=== PATIENT | male | born 1985 | race African-American/Black ===

== ENCOUNTER 2019-07-07 19:45 | Observation (INO) ==
[2019-07-07] MEDS ORDERED: CLINDAMYCIN INJ 600 MG in PREMIX 1 EACH IV STA (20:57)
[2019-07-07] MEDS ORDERED: LIDOCAINE 1% 20 ML VIAL INFILTRAT STA (20:59)
[2019-07-07 21:32] LABS: Basophils % 0.2 % (0.0-0.8); Eosinophils # 0.1 10*3/uL (0.0-0.87); Eosinophils % 0.6 % (0.00-10.9); Hematocrit 42.2 VOL% (42.0-52.0); Hemoglobin 14.3 GM/DL (14.0-18.0); Immature Granulocytes % 0.4 %; Immature Granulocytes Absolute 0.06 #; Lymphocytes # 1.2 10*3/uL (1.4-4.0); Mean Corpuscular HGB Conc 33.9 GM/DL (32-36); Mean Corpuscular Volume 96.1 FL (87-102); Mean Platelet Volume 10.8 FL (9.6-12.0); Monocytes % 8.8 % (1.7-12.7); Platelet Count 198 T/CUMM (130-400); Red Blood Count 4.39 MC/CUMM (3.8-5.5); Red Cell Distribution Width 12.9 % (9.3-17.3); White Blood Count 13.4 T/CUMM (4-12)
[2019-07-07 21:50] LABS: Calcium 8.9 MG/DL (8.5-10.1); Osmolality,Calculated 276.5 MOS/KG (273-304)
[2019-07-07] MEDS ORDERED: ONDANSETRON 4 MG/2 ML VIAL IV PRN (21:57)
[2019-07-07] MEDS ORDERED: ACETAMINOPHEN 325 MG TABLET PO PRN (21:57)
[2019-07-07] MEDS ORDERED: PIPERACILLIN/TAZOBACTAM 3,375 MG VIAL IV ONE (22:04)
[2019-07-07] MEDS: KETOROLAC 15 MG/1 ML VIAL IV PRN (22:14)
[2019-07-07] MEDS: PIPERACILLIN/TAZOBACTAM 3,375 MG in SODIUM CHLORIDE 0.9% 100 ML IV SCH (22:25)
[2019-07-07] MEDS ORDERED: VANCOMYCIN INJ 1,750 MG in SODIUM CHLORIDE 0.9% 500 ML IV ONE (22:30)
[2019-07-08] MEDS: PIPERACILLIN/TAZOBACTAM 3,375 MG in SODIUM CHLORIDE 0.9% 100 ML IV SCH ×4 (01:57→23:29)
[2019-07-08] MEDS: DEXTROSE 5% NACL 0.45% 1,000 ML IV SCH ×4 (02:20→23:28)
[2019-07-08] MEDS ORDERED: VANCOMYCIN INJ 1,750 MG in SODIUM CHLORIDE 0.9% 500 ML IV ONE (02:30)
[2019-07-08] MEDS: FAMOTIDINE 20 MG/2 ML VIAL IV SCH ×2 (08:10→21:17)
[2019-07-08] MEDS ORDERED: LIDOCAINE 1% 20 ML VIAL ONE (08:32)
[2019-07-08] MEDS ORDERED: INFLUENZA VIRUS VACCINE 0.5 ML SYRINGE IM ONE (09:00)
[2019-07-08] MEDS ORDERED: PROPOFOL 200 MG/20 ML VIAL IV ONE (09:01)
[2019-07-08] MEDS ORDERED: LIDOCAINE 2% 5 ML VIAL ONE (09:01)
[2019-07-08] MEDS ORDERED: MIDAZOLAM 2 MG/2 ML VIAL ONE (09:01)
[2019-07-08] MEDS ORDERED: fentaNYL 100 MCG/2 ML VIAL ONE (09:02)
[2019-07-08] MEDS: VANCOMYCIN INJ 1,250 MG in SODIUM CHLORIDE 0.9% 250 ML IV SCH (13:27)
[2019-07-08] MEDS: KETOROLAC 15 MG/1 ML VIAL IV PRN ×2 (14:45→21:18)
[2019-07-09] MEDS: VANCOMYCIN INJ 1,250 MG in SODIUM CHLORIDE 0.9% 250 ML IV SCH ×2 (03:37→15:11)
[2019-07-09] MEDS: PIPERACILLIN/TAZOBACTAM 3,375 MG in SODIUM CHLORIDE 0.9% 100 ML IV SCH ×3 (06:40→23:54)
[2019-07-09] MEDS: DEXTROSE 5% NACL 0.45% 1,000 ML IV SCH ×3 (07:08→18:00)
[2019-07-09] MEDS: FAMOTIDINE 20 MG/2 ML VIAL IV SCH ×2 (09:18→21:04)
[2019-07-10] MEDS: KETOROLAC 15 MG/1 ML VIAL IV PRN (02:09)
[2019-07-10] MEDS: VANCOMYCIN INJ 1,250 MG in SODIUM CHLORIDE 0.9% 250 ML IV SCH (04:30)
[2019-07-10] MEDS: PIPERACILLIN/TAZOBACTAM 3,375 MG in SODIUM CHLORIDE 0.9% 100 ML IV SCH (06:37)
[2019-07-10 07:30] VITALS: BP 127/77
[2019-07-10] MEDS: FAMOTIDINE 20 MG/2 ML VIAL IV SCH (09:57)
[2019-07-10] MEDS: DEXTROSE 5% NACL 0.45% 1,000 ML IV SCH (10:38)
== END 2019-07-10 10:47 | disposition home or self-care (01) ==
LOC: N.ED 19:45 → N.EDINP 19:45 → N.3E 22:10
PROVIDERS: ADMIT Surgery; ATTEND Surgery